=== PATIENT | male | born 1960 | race Caucasian/White ===

== ENCOUNTER 2020-01-06 13:40 | Outpatient (CLI) | payer OTHER, SELFPAY ==
--- NOTE | ~2020-01-06 | XR_ITS ---
EXAMINATION: XR wrist RT min 3V DATE: 01/06/2020 13:58 INDICATION: Right wrist injury. TECHNIQUE: 4 views of right wrist were obtained. COMPARISON: None. FINDINGS: There is a transverse fracture of distal radial metaphysis without involvement of the dista l articular surface or distal radioulnar joint. The distal fracture fragment demonstrates impaction a nd dorsal angulation. There is 24 degrees dorsal tilt of the distal articular surface. Ulnar styloid is intact. 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 IMPRESSION: 1. Transverse fracture of distal radial metaphysis. Reviewed, dictated and finalized at location A.
== END 2020-01-06 13:41 | disposition home or self-care (01) ==
LOC: ANHIMG 13:45
PROVIDERS: PCP Internal Medicine; Visit Provider Internal Medicine
DX: M79.89 Other specified soft tissue disorders (principal); S59.291A Other physeal fracture of lower end of radius, right arm, initial encounter for closed fracture; X58.XXXA Exposure to other specified factors, initial encounter
CPT/HCPCS: 73110